=== PATIENT | female | born 1960 | race American Indian/Alaskan Native ===

== ENCOUNTER 2017-07-23 13:25 | Emergency (ER) | payer OTHER ==
[2017-07-23 13:31] VITALS: O2SAT 100
[2017-07-23] MEDS ORDERED: Tmp-Smz 800 mg-160 mg DS Tab PO STA (15:07)
--- NOTE | 2017-07-23 15:20 | C.PDOC ---
History Of Present Illness Patient is a 57 y/o female who presents to the ED for evaluation of cysts on front and back of neck. Patient reports cyst on anterior aspect of neck has increased in size over the last 2 days and expresses concern of growth. Patient denies any fever, chills, or difficulty breathing. No other physical complaints at this time. Time Seen by Provider: 07/23/17 13:55 Chief Complaint (Nursing): Abnormal Skin Integrity History Per: Patient History/Exam Limitations: no limitations Onset/Duration Of Symptoms: Days (2), Gradual Current Symptoms Are (Timing): Still Present Recent travel outside of the [place]: No Past Medical History Reviewed: Historical Data, Nursing Documentation, Vital Signs Vital Signs: Last Vital Signs Temp 98.0 F 07/23/17 15:38 Pulse 55 L 07/23/17 15:38 Resp 16 07/23/17 15:38 BP 133/82 07/23/17 15:38 Pulse Ox 100 07/23/17 16:04 - Medical History PMH: No Chronic Diseases Surgical History: No Surg Hx Family History: States: No Known Family Hx - Social History Hx Alcohol Use: No Hx Substance Use: No - Immunization History Hx Tetanus Toxoid Vaccination: No Hx Influenza Vaccination: No Hx Pneumococcal Vaccination: No Review Of Systems Constitutional: Negative for: Fever, Chills Respiratory: Negative for: Cough, Shortness of Breath, Wheezing Skin: Positive for: Other (tissue growth to anterior aspect of neck) Physical Exam - Physical Exam Appears: Well, Non-toxic, No Acute Distress Skin: Normal Color, Warm, Dry, No Ecchymosis, Other (infected sebaceous cyst zoned to anterior neck; second cyst zoned to posterior neck) Neck: Normal, Normal ROM, Supple Additional Physical Exam Comments: diagnosis: infected sebaceous cyst ED Course And Treatment O2 Sat by Pulse Oximetry: 100 Progress Note: Bactrim administered. Surgery consult evaluated patient, recommended antibiotics and advised patient to follow up with outpatient with Dr. Kaba. Medical Decision Making Medical Decision Making: [employer] evaluated patient and advised patient is stable for d/c home Disposition Counseled Patient/Family Regarding: Diagnosis, Need For Followup, Rx Given - Disposition Referrals: Pradeep Kaba MD [Staff Provider] - Disposition: HOME/ ROUTINE Disposition Time: 15:18 Condition: STABLE Additional Instructions: follow up with Dr. Kaba in 2 days call to make an appointment take medications as prescribed return to ER if symptoms worsens or progress Prescriptions: Sulfamethoxazole/Trimethoprim [Bactrim DS 800 mg-160 mg] 1 tab PO BID #20 tab Instructions: Abscess Incision and Drainage Forms: [facility] (Lithuanian), General Discharge Instructions - Clinical Impression Clinical Impression: Cyst, Abscess - Scribe Statement The provider has reviewed the documentation as recorded by the Scribe Monica Mcdaniel All medical record entries made by the Edelmiraibrickey were at my direction and personally dictated by me. I have reviewed the chart and agree that the record accurately reflects my personal performance of the history, physical exam, medical decision making, and the department course for this patient. I have also personally directed, reviewed, and agree with the discharge instructions and disposition.
[2017-07-23] MEDS ORDERED: Tmp-Smz 800 mg-160 mg DS Tab ONE (15:22)
--- NOTE | 2017-07-23 15:26 | CP.PCM.CON ---
History of Present Illness - History of Present Illness History of Present Illness: General Surgery Consult Note for Dr. Kaba This 57F with no PMH presents to the ED due to a swelling on the left side of her neck. She reports a small "pea" under her skin for over a year. However over the last 2 days it has gotten larger and mildly tender. She denies any fevers or chills at home she denies any discharge. She also reports an additional similar leasion on the back of her neck that is still small and unchanged. She reports it is similar in quality to her lateral neck lesion before it became inflamed. PMH: Denies PSH: Denies ALL: NKDA Social: Denies Vices Review of Systems - Review of Systems All systems: reviewed and no additional remarkable complaints except - Integumentary Additional comments: 2 small bumps on her left lateral neck and one just below her hairline that have been present for over a year, mostly non tender until recently when the lateral neck lesion became painful. Past Patient History - Past Social History Smoking Status: Smoker Currrent Status Unknown - HEENT Hx Glaucoma: Yes - PSYCHIATRIC Hx Substance Use: No - SURGICAL HISTORY Hx Surgeries: No - ANESTHESIA Hx Anesthesia: No Hx Anesthesia Reactions: No Meds Home Medications: Home Medication List Medication Instructions Recorded Confirmed Type Sulfamethoxazole/Trimethoprim 1 tab PO BID #20 tab 07/23/17 Rx [Bactrim DS 800 mg-160 mg] Allergies/Adverse Reactions: Allergies Allergy/AdvReac Type Severity Reaction Status Date / Time No Known Allergies Allergy Unverified 07/23/17 13:31 Physical Exam - Constitutional Appears: Non-toxic, No Acute Distress - Head Exam Head Exam: ATRAUMATIC, NORMOCEPHALIC - Eye Exam Eye Exam: EOMI - ENT Exam ENT Exam: Mucous Membranes Moist - Neck Exam Additional comments: Small 1cm freely mobile mass on the left neck, mildly tender, non draining, minimal overlying erythma, pposterior neck mass 5mm non tender mobile. - Respiratory Exam Respiratory Exam: NORMAL BREATHING PATTERN - GI/Abdominal Exam GI & Abdominal Exam: Soft - Neurological Exam Neurological exam: Alert, Oriented x3 - Psychiatric Exam Psychiatric exam: Normal Affect, Normal Mood - Skin Skin Exam: Dry, Intact Results - Vital Signs Recent Vital Signs: Last Vital Signs Temp 98.4 F 07/23/17 13:29 Pulse 64 07/23/17 13:29 Resp 20 05/30/18 13:29 BP 146/88 07/23/17 13:29 Pulse Ox 100 07/23/17 15:20 Assessment & Plan - Assessment and Plan (Free Text) Assessment: 57F with neck lesion likely an infected sebaceous cyst Recommend D/C with PO abx Followup outpatient for elective sebacous cyst removal If symptoms worsen please return to ER (Fever, increased pain) If it drains spontanesously that is ok D/W Dr. Sesar Steve PGY2
[2017-07-23 15:38] VITALS: BP 133/82; PULSE 55; RESP 16; TEMP 98
== END 2017-07-23 15:39 | disposition home or self-care (01) ==
LOC: C.ER 13:25
DX: L72.3 Sebaceous cyst (principal)